=== PATIENT | female | born 1980 ===

== ENCOUNTER 2017-10-22 14:56 | Emergency (ER) | payer MEDICAID ==
[2017-10-22 15:03] VITALS: BMI 33.7
[2017-10-22] MEDS ORDERED: Alum-Mag Hydrox-Simethicone Susp (30 mL) PO ONE (15:48)
[2017-10-22] MEDS ORDERED: Atrop/Hyos/Scop/PhenoB Elixir PO ONE (15:48)
[2017-10-22] MEDS ORDERED: Alum-Mag Hydrox-Simethicone Susp (30 mL) ONE (15:54)
[2017-10-22] MEDS ORDERED: Sodium Chloride 0.9% 1,000 ML IV SCH ×2 (16:00→16:30)
--- NOTE | 2017-10-22 16:06 | ED PDOC ---
Syncope/Near Syncope/Dizziness Time Seen by Provider: 10/22/17 15:40 Chief Complaint (Nursing): Headache Chief Complaint (Provider): Dizziness History Per: Patient History/Exam Limitations: no limitations Onset/Duration Of Symptoms: Days (x1) Current Symptoms Are (Timing): Still Present Additional Complaint(s): Samia Sue is a 37 year old female with a past medical history of migraines and asthma, who is presenting to the ED for evaluation of dizziness and lightheadedness associated with epigastric cramps and discomfort, onset 1 day ago. Patient reports one episode of vomiting and persistent nausea since yesterday. She states that she went out celebrating with her friends and partook in consuming more alcohol than usual. Patient admits she felt tipsy and arrived this morning feeling very thirsty but was unable to quench her thirst. She reports feeling shaky with mild chills along with a decreased appetite. Of note, her last bowel movement was yesterday morning and it was normal with no blood. --+epigastric pain/cramps today (mild) --pt positive for mild chills/vomiting/nausea/dizziness --pt denied syncopal event, no LOC --pt denied fever/sweats/urinary changes (hematuria, dysuria) --pt denied sob/chest pain/palpitations --pt denied fall/trauma/sick contact, no travel --pt is here for further eval --pt denied other complaints PCP: Sean Griffith Surgeries: gastric sleeve procedure (May 2017), tonsillectomy, right hand cyst removal, bilateral foot surgery Past Medical History Reviewed: Historical Data, Nursing Documentation, Vital Signs Vital Signs: Last Vital Signs Temp 98.2 F 10/22/17 15:01 Pulse 78 10/22/17 15:01 Resp 16 10/22/17 15:01 BP 105/70 10/22/17 15:01 Pulse Ox 98 10/22/17 15:01 - Medical History PMH: Asthma, Kidney Stones, Migraine, Mitral Valve Prolapse, Sleep Apnea Denies: Chronic Kidney Disease - Surgical History Surgical History: Tonsillectomy Other surgeries: right hand cyst removal, bilateral foot surgery, gastric sleeve procedure - Family History Family History: States: Unknown Family Hx - Living Arrangements Living Arrangements: With Friends/Others - Social History Current smoker - smoking cessation education provided: No Alcohol: Social Drugs: Denies - Immunization History Hx Tetanus Toxoid Vaccination: No Hx Influenza Vaccination: No Hx Pneumococcal Vaccination: No - Home Medications Home Medications: Ambulatory Orders Medication Instructions Recorded Ibuprofen [Motrin Tab] 600 mg PO Q8H PRN 11/12/15 Clindamycin [Cleocin] 300 mg PO TID #20 cap 01/31/16 Emtricitabine/Tenofovir (Tdf) 1 each PO DAILY 14 Days #14 tablet 08/30/17 [Truvada 200 mg-300 mg Tablet] Raltegravir Potassium [Isentress] 400 mg PO BID 14 Days #28 tab 08/30/17 Sulfamethoxazole/Trimethoprim 1 tab PO BID 5 Days #10 tab 08/30/17 [Bactrim DS 800 mg-160 mg] Aluminum Hydroxide/Magnesium H 30 ml PO TID PRN #300 ml 10/22/17 [Maalox 30 ml] Famotidine [Pepcid] 20 mg PO BID #30 tab 10/22/17 Lidocaine 2% Viscous 15 ml MM TID PRN #100 ml 10/22/17 - Allergies Allergies/Adverse Reactions: Allergies Allergy/AdvReac Type Severity Reaction Status Date / Time cephalexin Allergy ITCHING Verified 10/22/17 15:29 Review of Systems ROS Statement: Except As Marked, All Systems Reviewed And Found Negative Constitutional: Positive for: Chills, Weakness. Negative for: Fever, Sweats Eyes: Negative for: Pain ENT: Negative for: Ear Pain Cardiovascular: Negative for: Chest Pain, Palpitations Respiratory: Negative for: Shortness of Breath Gastrointestinal: Positive for: Nausea, Vomiting, Abdominal Pain. Negative for : Diarrhea Genitourinary Female: Negative for: Dysuria, Hematuria Musculoskeletal: Negative for: Neck Pain, Back Pain Skin: Negative for: Rash Neurological: Positive for: Weakness, Dizziness Physical Exam - Reviewed Nursing Documentation Reviewed: Yes Vital Signs Reviewed: Yes (WNL) - Physical Exam Appears: Positive for: Well (alert/awake, GCS = 15, oriented x 3, NAD, + mildly uncomfortable, resting in bed; cooperative), Non-toxic, No Acute Distress, Uncomfortable Head Exam: Positive for: ATRAUMATIC, NORMAL INSPECTION, NORMOCEPHALIC Skin: Positive for: Normal Color (cap refill < 1sec, no ulcerations, no petechiae, no rashes, no lesions), Warm, Dry. Negative for: Rash Eye Exam: Positive for: Normal appearance, EOMI, PERRL. Negative for: Nystagmus ENT: Positive for: Normal ENT Inspection, Pharynx Is (+ dry oral mucosa, intact dentitions, no drooling/stridor, ), Other (dry oral mucosa, intact dentition, uvula and tongue midline, no dysphonia). Negative for: Tonsillar Exudate, Tonsillar Swelling Neck: Positive for: Normal, Painless ROM, Supple, Trachea Midline Cardiovascular/Chest: Positive for: Regular Rate, Rhythm, Other (+S1, +S2). Negative for: Murmur Respiratory: Positive for: Normal Breath Sounds, Other (CTA b/l, no w/r/r, no accessory muscle use noted, no tachypenia). Negative for: Stridor, Wheezing, Respiratory Distress Pulses-Carotid (L): 2+ Pulses-Carotid (R): 2+ Gastrointestinal/Abdominal: Positive for: Bowel Sounds, Soft, Tenderness (mild epigastric tenderness), Other (well nourished female; + mid abd tenderness, no McBurney's point tenderness, no Gonzalez' s sign; Soft/ND; +BS) Back: Positive for: Normal Inspection. Negative for: L CVA Tenderness, R CVA Tenderness, Vertebral Tenderness Extremity: Positive for: Normal ROM, Other (+ ambulatory; neurovasc intact b/l, strength 5/5 grossly intact in all limbs). Negative for: Deformity, Swelling Neurologic/Psych: Positive for: Alert, chair pad maker II-XII, Oriented (x3), Other (no facial asymmetries, no slurr speech, oriented x 3, NIH stroke scale ~ 0). Negative for: Motor/Sensory Deficits - Laboratory Results Result Diagrams: 10/22/17 16:23 10/22/17 17:54 Interpretation Of Abn Labs: WNL - ECG O2 Sat by Pulse Oximetry: 98 (RA) Pulse Ox Interpretation: Normal - Progress ED Course And Treament: 1830 - pt is doing well pt is not in any distress pt tolerated po well vital signs: WNL pt is made aware of her medical results pt is encouraged fluids/bland diet pt is encouraged NO alcohol pt will f/u as directed pt will be discharged home Re-evaluation Time: 18:30 Condition: Re-examined, Improved Medical Decision Making Medical Decision Making: Time: 15:50 Assessment/Differential Diagnosis: I have considered all the differential diagnosis regarding pt's chief medical complaints/clinical findings, including but are not limited to: likely hangover, dehydration, unlikely rhabdomyolysis, unlikely surgical process, or ACS Plan: - labs - IV - supportive care - observe Orders: --CMP --Lipase --ED Urine --CBC -- 5 ml PO --Lidocaine 15 ml PO --Maalox 30 ml PO --IV Fluids --Pepcid 20 mg IVP --Zofran 4 mg IVP --Urinalysis Scribe Attestation: Documented by Keshia Alejandre, acting as a scribe for Bimal Aragon MD. Provider Scribe Attestation: All medical record entries made by the Scribe were at my direction and personally dictated by me. I have reviewed the chart and agree that the record accurately reflects my personal performance of the history, physical exam, medical decision making, and the department course for this patient. I have also personally directed, reviewed, and agree with the discharge instructions and disposition. Disposition - Clinical Impression Clinical Impression: Dehydration, Epigastric pain - Patient ED Disposition Is Patient to be Admitted: No Counseled Patient/Family Regarding: Studies Performed, Diagnosis, Need For Followup, Rx Given - Disposition Referrals: PCP,NO [Non-Staff] - [facility] [Outside] [facility] [Outside] [facility] [Outside] Disposition: Routine/Home Disposition Time: 18:33 Condition: STABLE Additional Instructions: Make sure to see your doctor in 1-2 days DRINK PLENTY OF FLUIDS DONT DRINK ALCOHOL BLAND DIET IS ENCOURAGED take your medications as prescribed RETURN TO ED IF worse pain, cant breath, persistent vomiting, high fever >101- 102 for hours, altered behavior, slurr speech, facial changes, focal weakness ( arm/leg or both), unable to urinate, heavy/persistent bleeding, passing out, chest pain, or other medical emergencies Prescriptions: Aluminum Hydroxide/Magnesium H [Maalox 30 ml] 30 ml PO TID PRN #300 ml PRN Reason: Gi Distress Famotidine [Pepcid] 20 mg PO BID #30 tab Lidocaine 2% Viscous 15 ml MM TID PRN #100 ml PRN Reason: Gi Distress Instructions: Gastritis, Dehydration, Adult (DC), [place] Diet Forms: [facility] (Faroese) Print Language: CENTRAL AFRICAN
[2017-10-22 16:38] LABS: BASO # 0.1 K/uL (0.0-0.2); BASO % 0.6 % (0.0-2.0); EOS % 0.2 % (0.0-4.0); HEMOGLOBIN 11.1 g/dL (12.0-16.0); LYMPH % 17.6 % (20.0-40.0); MEAN CELL VOLUME 88.2 fl (81.0-99.0); MEAN CORPUSCULAR HEMOGLOBIN 28.8 pg (27.0-31.0); MEAN CORPUSCULAR HGB CONC 32.6 g/dL (33.0-37.0); MEAN PLATELET VOLUME 10.4 fl (7.2-11.7); MONO # 0.7 K/uL (0.0-0.8); MONO % 5.9 % (0.0-10.0); NEUT # 8.8 K/uL (1.8-7.0); NEUT % 75.7 % (50.0-75.0); NRBC % 0.1 % (0.0-0.0); RBC 3.87 Mil/uL (3.80-5.20); RED CELL DISTRIBUTION WIDTH 14.1 % (11.5-14.5); WHITE BLOOD COUNT 11.6 K/uL (4.8-10.8)
[2017-10-22 16:40] LABS: URINE BILIRUBIN NEGATIVE (NEGATIVE); URINE BLOOD NEGATIVE (NEGATIVE); URINE CLARITY CLOUDY (Clear); URINE COLOR AMBER (YELLOW); URINE GLUCOSE (UA) NEG (Normal); URINE LEUKOCYTE ESTERASE SMALL Leu/uL (Negative); URINE PROTEIN 30 mg/dL (NEGATIVE); URINE UROBILINOGEN 0.2-1.0 mg/dL (0.2-1.0)
[2017-10-22 18:13] LABS: ALB/GLOB RATIO 1.2 (1.0-2.1); ALBUMIN 4.1 g/dL (3.5-5.0); ALT/SGPT 25 U/L (9-52); AST/SGOT 37 U/L (14-36); BLOOD UREA NITROGEN 12 mg/dl (7-17); CALCIUM 9.3 mg/dL (8.4-10.2); GFR NON-AFRICAN AMERICAN > 60; LIPASE 50 U/L (23-300)
[2017-10-22 19:05] VITALS: BP 110/67; PULSE 71; RESP 17; TEMP 98.6
[2017-10-22 19:07] VITALS: O2SAT 98
== END 2017-10-22 19:12 | disposition home or self-care (01) ==
LOC: H.ER 14:56
DX: E86.0 Dehydration (principal); R10.13 Epigastric pain
CPT/HCPCS: 80053; 81003; 81025; 82550; 83690; 85025; 96361; 96374; 96375; 99284; J2405; J7030

== ENCOUNTER 2018-03-29 13:28 | Emergency (ER) | payer MEDICAID, OTHER ==
[2018-03-29 13:29] VITALS: BMI 33.7
[2018-03-29] MEDS ORDERED: Sodium Chloride 0.9% 1,000 ML IV SCH (18:15)
[2018-03-29 18:44] LABS: BASO % 1.3 % (0.0-2.0); EOS % 2.5 % (0.0-4.0); HEMOGLOBIN 10.9 g/dL (12.0-16.0); LYMPH # 1.4 K/uL (1.0-4.3); LYMPH % 32.5 % (20.0-40.0); MEAN CELL VOLUME 89.7 fl (81.0-99.0); MEAN CORPUSCULAR HEMOGLOBIN 28.8 pg (27.0-31.0); MEAN CORPUSCULAR HGB CONC 32.1 g/dL (33.0-37.0); MEAN PLATELET VOLUME 9.8 fl (7.2-11.7); MONO # 0.8 K/uL (0.0-0.8); MONO % 18.1 % (0.0-10.0); NEUT % 45.6 % (50.0-75.0); NRBC % 0.1 % (0.0-0.0); RBC 3.8 Mil/uL (3.80-5.20); RED CELL DISTRIBUTION WIDTH 13.9 % (11.5-14.5); WHITE BLOOD COUNT 4.4 K/uL (4.8-10.8)
[2018-03-29 18:45] LABS: BASO # 0.1 K/uL (0.0-0.2); EOS # 0.1 K/uL (0.0-0.7)
[2018-03-29 18:55] LABS: ALB/GLOB RATIO 1.2 (1.0-2.1); ALBUMIN 4.1 g/dL (3.5-5.0); ALT/SGPT 24 U/L (9-52); AST/SGOT 25 U/L (14-36); BLOOD UREA NITROGEN 17 mg/dl (7-17); CALCIUM 9.2 mg/dL (8.4-10.2); GFR NON-AFRICAN AMERICAN > 60
--- NOTE | 2018-03-29 19:15 | ED PDOC ---
Syncope/Near Syncope/Dizziness Time Seen by Provider: 03/29/18 15:55 Chief Complaint (Nursing): Dizziness/Lightheaded Chief Complaint (Provider): Dizziness/Lightheaded History Per: Patient History/Exam Limitations: no limitations Onset/Duration Of Symptoms: Days (x1), Persistent Current Symptoms Are (Timing): Still Present Additional Complaint(s): Patient is a 37 y/o female with a PMHx of asthma, kidney stones, migraine, mitral valve prolapse, and sleep apnea who presents to the ED for evaluation burning, right-sided neck pain and headache. The patient states she has been having difficulty moving her neck, has been experiencing visual blurriness, a sore throat, right-sided ear pain associated with her neck pain, and a mild sore throat. Patient's partner states she developed a cold sweat last night. The patient has also been able to eat and drink normally. However, the patient denies fever as well as N/V/D. Of note, the patient saw her PMD two weeks ago with viral illness symptoms such as a cough, myalgia, and nausea which she was prescribed Ibuprofen and Zofran. PCP: Dr. Sean Griffith Past Medical History Reviewed: Historical Data, Nursing Documentation, Vital Signs Vital Signs: Last Vital Signs Temp 98.4 F 03/29/18 14:07 Pulse 68 03/29/18 14:07 Resp 16 03/29/18 14:07 BP 121/74 03/29/18 14:07 Pulse Ox 100 03/29/18 14:07 - Medical History PMH: Asthma, Kidney Stones, Migraine, Mitral Valve Prolapse, Sleep Apnea Denies: Chronic Kidney Disease - Surgical History Surgical History: Tonsillectomy - Family History Family History: States: Unknown Family Hx - Immunization History Hx Tetanus Toxoid Vaccination: No Hx Influenza Vaccination: No Hx Pneumococcal Vaccination: No - Home Medications Home Medications: Ambulatory Orders Medication Instructions Recorded Ibuprofen [Motrin Tab] 600 mg PO Q8H PRN 11/12/15 Clindamycin [Cleocin] 300 mg PO TID #20 cap 01/31/16 Emtricitabine/Tenofovir (Tdf) 1 each PO DAILY 14 Days #14 tablet 08/30/17 [Truvada 200 mg-300 mg Tablet] Raltegravir Potassium [Isentress] 400 mg PO BID 14 Days #28 tab 08/30/17 Sulfamethoxazole/Trimethoprim 1 tab PO BID 5 Days #10 tab 08/30/17 [Bactrim DS 800 mg-160 mg] Aluminum Hydroxide/Magnesium H 30 ml PO TID PRN #300 ml 10/22/17 [Maalox 30 ml] Famotidine [Pepcid] 20 mg PO BID #30 tab 10/22/17 Lidocaine 2% Viscous 15 ml MM TID PRN #100 ml 10/22/17 Acetaminophen/Butalbital/Caf 1 tab PO Q4 PRN 7 Days tab 03/29/18 [Fioricet] Ibuprofen [Motrin Tab] 600 mg PO Q6 PRN 7 Days tab 03/29/18 - Allergies Allergies/Adverse Reactions: Allergies Allergy/AdvReac Type Severity Reaction Status Date / Time cephalexin Allergy ITCHING Verified 03/29/18 14:07 Review of Systems ROS Statement: Except As Marked, All Systems Reviewed And Found Negative Constitutional: Positive for: Sweats, Other (Myalgia). Negative for: Fever ENT: Positive for: Ear Pain (Right sided), Throat Pain (Sore), Other (Viual Blurryness) Cardiovascular: Negative for: Chest Pain, Palpitations Respiratory: Positive for: Cough. Negative for: Shortness of Breath Gastrointestinal: Negative for: Nausea, Vomiting, Diarrhea Musculoskeletal: Positive for: Neck Pain (to palpation of right side and posterior) Neurological: Negative for: Numbness (or Tingling of Hands) Physical Exam - Reviewed Nursing Documentation Reviewed: Yes Vital Signs Reviewed: Yes - Physical Exam Appears: Positive for: Uncomfortable Head Exam: Positive for: ATRAUMATIC, NORMAL INSPECTION, NORMOCEPHALIC Skin: Positive for: Normal Color Eye Exam: Positive for: Normal appearance, EOMI ENT: Positive for: Normal ENT Inspection, Other (No Tongue Deviation) Neck: Positive for: Decreased ROM (of lateral extenison and flexion) Cardiovascular/Chest: Negative for: Murmur (Split S2) Respiratory: Positive for: Normal Breath Sounds Gastrointestinal/Abdominal: Positive for: Normal Exam Extremity: Positive for: Normal ROM, Other (Equal Bilateral Supervisor Display Fabrication Strength) Neurologic/Psych: Positive for: Alert, Oriented, Other (Affect is Appropriate). Negative for: Facial Droop (Symmetrical Smile) - Laboratory Results Result Diagrams: 03/29/18 18:35 03/29/18 18:35 - ECG O2 Sat by Pulse Oximetry: 100 (RA) Pulse Ox Interpretation: Normal Medical Decision Making Medical Decision Making: Time: 1647 Plan: Angio [CTA Head & Neck Bundle] CMP Urine Pegnancy CBC Flexeril 10 mg IV Fluids Reglan 10 mg IVP Toradol 30 mg IM Influenza A B Time: 1929 An hour after medication was given, patient felt no improvement. Patient continues to feel burning sensation from neck to head. Angio ordered to rule out thrombosis. Time: 2038 CTA Head Neck Bundle FINDINGS: VASCULATURE: NECK: COMMON CAROTID ARTERIES No significant canal stenosis. No dissection or occlusion. EXTERNAL CAROTID ARTERIES Patent. NECK: INTERNAL CAROTID ARTERIES No stenosis by NASCET criteria. No dissection or occlusion. VERTEBRAL ARTERIES No significant canal stenosis. No dissection or occlusion. HEAD: ANTERIOR CEREBRAL ARTERIES No significant stenosis. No occlusion. No aneurysm. MIDDLE CEREBRAL ARTERIES No significant stenosis. No occlusion. No aneurysm. POSTERIOR CEREBRAL ARTERIES No significant stenosis. No occlusion. No aneurysm. BASILAR ARTERY No significant stenosis. No occlusion. No aneurysm. OTHER: SOFT TISSUES No acute finding. BONES No acute osseous abnormality. IMPRESSION: Unremarkable CTA of the head and neck. Electronically signed on Mar 29, 2018 8:39:34 PM EST by: Froilan Garcia M.D., PAMELA Certified By [facility] [employer] [facility] Fellowship Trained MRI and CT Specialist Scribe Attestation: Documented by Nicola Barron, acting as a scribe for Patt HOGAN. Provider Scribe Attestation: All medical record entries made by the Scribe were at my direction and personally dictated by me. I have reviewed the chart and agree that the record accurately reflects my personal performance of the history, physical exam, medical decision making, and the department course for this patient. I have also personally directed, reviewed, and agree with the discharge instructions and disposition. Disposition - Clinical Impression Clinical Impression: Cluster headache - Patient ED Disposition Is Patient to be Admitted: No Counseled Patient/Family Regarding: Studies Performed, Diagnosis, Need For Followup, Rx Given - Disposition Referrals: Sean Griffith, FLORY, [facility] [Family Provider] - Disposition: Routine/Home Disposition Time: 23:40 Condition: STABLE Additional Instructions: F/u with your neurologist for further management of headache. Take Ibuprofen and Fioricet for the pain. Return to ER if your pain becomes significantly worse or if you start to have trouble with your vision, N/V or unsteady when walking. Stay hydrated. Prescriptions: Acetaminophen/Butalbital/Caf [Fioricet] 1 tab PO Q4 PRN 7 Days tab PRN Reason: Headache Ibuprofen [Motrin Tab] 600 mg PO Q6 PRN 7 Days tab PRN Reason: Headache Instructions: Cluster Headache (DC) Forms: [facility] (Lao), [facility] ED School/Work Excuse Print Language: FILIPINO
[2018-03-29] MEDS ORDERED: Sodium Chloride 0.9% 50 ML IV ONE (19:21)
[2018-03-29] MEDS ORDERED: Iodixanol 320 MG/ML 100 ML BOTTLE IV ONE (19:21)
[2018-03-29] MEDS ORDERED: Sodium Chloride 0.9% 500 ML IV STA (20:57)
[2018-03-29 23:43] VITALS: BP 118/72; PULSE 72; RESP 18; TEMP 98.2; O2SAT 98
--- NOTE | 2018-03-30 12:55 | CT ---
Date of service: 03/29/2018 PROCEDURE: CT Angiography of the Brain and Neck. HISTORY: burning neck pain and ISAAC w/ intermittent visual ch COMPARISON: None available. TECHNIQUE: CT angiography of the head and neck was performed following intravenous contrast administration. Coronal and sagittal maximum intensity projection reformatted images were generated. Contrast Dose: Visipaque 320, 95 cc Radiation dose: Total exam DLP = 410.02 mGy-cm. This CT exam was performed using one or more of the following dose reduction techniques: Automated exposure control, adjustment of the mA and/or kV according to patient size, and/or use of iterative reconstruction technique. FINDINGS: INTERNAL CEREBRAL ARTERIES: Unremarkable. The skull base, petrous, cavernous and supraclinoid segments are bilaterally widely patent. ANTERIOR CEREBRAL ARTERIES: Unremarkable. A1 and A2 segments are widely patent. Smaller distal branches unremarkable, as visualized. MIDDLE CEREBRAL ARTERIES: Unremarkable. M1 and M2 segments are widely patent. Perisylvian branches grossly symmetric. POSTERIOR CIRCULATION: Basilar Artery: Unremarkable. Distal Vertebral Arteries: Unremarkable. Posterior Cerebral Arteries: Unremarkable. Posterior Inferior Cerebellar Arteries: Unremarkable. NECK CTA: Common Carotid arteries: The bilateral common carotid appear widely patent from their origins to their bifurcations with no significant stenosis appreciated. No evidence to suggest common carotid artery dissection. Internal Carotid arteries: No significant stenosis is appreciated throughout the cervical internal carotid artery segments bilaterally and there is no evidence of dissection either. External Carotid arteries: Appear unremarkable bilaterally. Vertebral arteries: The bilateral vertebral arteries appear normal in caliber from their origins to their distal cervical segments. No significant stenosis or definite pattern of dissection. ANEURYSM/ VASCULAR MALFORMATIONS: None. OTHER FINDINGS: None. IMPRESSION: Unremarkable CT Angiography of the Brain and Neck.
== END 2018-03-29 23:43 | disposition home or self-care (01) ==
LOC: H.ER 13:28
DX: G44.009 Cluster headache syndrome, unspecified, not intractable (principal)
CPT/HCPCS: 70496; 70498; 80053; 81025; 85025; 87804; 96361; 96372; 96374; 99283; J1885; J2765; J7030; J7040; Q9967

== ENCOUNTER 2018-08-24 16:25 | Emergency (ER) | payer MEDICAID, OTHER ==
[2018-08-24 16:25] VITALS: BMI 33.7
[2018-08-24 16:44] VITALS: BP 115/79; PULSE 77; RESP 18; TEMP 98.7; O2SAT 99
--- NOTE | 2018-08-24 17:10 | ED PDOC ---
HPI: Back Time Seen by Provider: 08/24/18 17:01 Chief Complaint (Nursing): Back Pain Chief Complaint (Provider): Back Pain History Per: Patient History/Exam Limitations: no limitations Onset/Duration Of Symptoms: Days Current Symptoms Are (Timing): Still Present Additional Complaint(s): 38 y/o female presents to the ED for evaluation of right flank pain and back pain that has worsened since yesterday despite use of Motrin. Patient reports of a history of UTI and is concerned for infection. Otherwise, patient denies fever and chills. PMD: Sean Griffith Past Medical History Reviewed: Historical Data, Nursing Documentation, Vital Signs Vital Signs: Last Vital Signs Temp 98.7 F 08/24/18 16:40 Pulse 77 08/24/18 16:40 Resp 18 08/24/18 16:40 BP 115/79 08/24/18 16:40 Pulse Ox 99 08/24/18 16:40 Primary Care Provider: Sean Griffith - Medical History PMH: Asthma, Kidney Stones, Migraine, Mitral Valve Prolapse, Sleep Apnea Denies: Chronic Kidney Disease - Surgical History Surgical History: Tonsillectomy - Family History Family History: States: Unknown Family Hx - Immunization History Hx Tetanus Toxoid Vaccination: No Hx Influenza Vaccination: No Hx Pneumococcal Vaccination: No - Home Medications Home Medications: Ambulatory Orders Medication Instructions Recorded Ibuprofen [Motrin Tab] 600 mg PO Q8H PRN 11/12/15 Clindamycin [Cleocin] 300 mg PO TID #20 cap 01/31/16 Emtricitabine/Tenofovir (Tdf) 1 each PO DAILY 14 Days #14 tablet 08/30/17 [Truvada 200 mg-300 mg Tablet] Raltegravir Potassium [Isentress] 400 mg PO BID 14 Days #28 tab 08/30/17 Sulfamethoxazole/Trimethoprim 1 tab PO BID 5 Days #10 tab 08/30/17 [Bactrim DS 800 mg-160 mg] Aluminum Hydroxide/Magnesium H 30 ml PO TID PRN #300 ml 10/22/17 [Maalox 30 ml] Famotidine [Pepcid] 20 mg PO BID #30 tab 10/22/17 Lidocaine 2% Viscous 15 ml MM TID PRN #100 ml 10/22/17 Acetaminophen/Butalbital/Caf 1 tab PO Q4 PRN 7 Days tab 03/29/18 [Fioricet] Ibuprofen [Motrin Tab] 600 mg PO Q6 PRN 7 Days tab 03/29/18 Naproxen 375 mg PO Q8 PRN #21 tablet 08/24/18 diaZEpam [Valium] 5 mg PO Q8 PRN #4 tab 08/24/18 - Allergies Allergies/Adverse Reactions: Allergies Allergy/AdvReac Type Severity Reaction Status Date / Time cephalexin Allergy ITCHING Verified 08/24/18 16:44 Review of Systems ROS Statement: Except As Marked, All Systems Reviewed And Found Negative Musculoskeletal: Positive for: Back Pain Physical Exam - Reviewed Nursing Documentation Reviewed: Yes Vital Signs Reviewed: Yes - Physical Exam Appears: Positive for: Uncomfortable Back: Positive for: Other (Right parathoracic and right flank tenderness to palpation.) - Laboratory Results Urine POC: Negative Urine dip results: Negative for: Blood, Nitrate, Ketones, Glucose, Bilirubin, Protein - ECG O2 Sat by Pulse Oximetry: 99 (RA) Pulse Ox Interpretation: Normal - Progress ED Course And Treament: TORADOL 30 MG IM X 1 DOSE VALIUM 5 MG X 1 DOSE Medical Decision Making Medical Decision Making: Time: 170 Impression: Flank Pain Plan: -- ED Urine -- ED Urine Dipstick -- Urine Culture -- Urinalysis Scribe Attestation: Documented by Irina Montalvo, acting as a scribe Odilia Galarza PA-C. Provider Scribe Attestation: All medical record entries made by the Scribe were at my direction and personally dictated by me. I have reviewed the chart and agree that the record accurately reflects my personal performance of the history, physical exam, medical decision making, and the department course for this patient. I have also personally directed, reviewed, and agree with the discharge instructions and disposition. Disposition - Clinical Impression Clinical Impression: Back strain - Patient ED Disposition Is Patient to be Admitted: No - Disposition Disposition: Routine/Home Disposition Time: 17:51 Condition: FAIR Prescriptions: diaZEpam [Valium] 5 mg PO Q8 PRN #4 tab PRN Reason: Muscle Spasm Naproxen 375 mg PO Q8 PRN #21 tablet PRN Reason: Pain, Moderate (4-7) Instructions: Low Back Pain (DC), Muscle Strain (DC) Forms: [facility] ED School/Work Excuse
[2018-08-24] MEDS ORDERED: Oxycodone/Acetaminophen 5/325 mg Tab ONE (17:36)
[2018-08-24 18:05] LABS: SQUAMOUS EPITHIAL 1 /hpf (0-5); URINE BILIRUBIN NEGATIVE (NEGATIVE); URINE CLARITY SLIGHTY-CLOUDY (Clear); URINE COLOR YELLOW (YELLOW); URINE GLUCOSE (UA) NEG (NEGATIVE); URINE LEUKOCYTE ESTERASE NEG Leu/uL (Negative); URINE PROTEIN NEGATIVE (NEGATIVE)
[2018-08-24 18:06] LABS: URINE BLOOD TRACE (NEGATIVE)
== END 2018-08-24 17:53 | disposition home or self-care (01) ==
LOC: H.ER 16:25
DX: S39.012A Strain of muscle, fascia and tendon of lower back, initial encounter (principal); J45.909 Unspecified asthma, uncomplicated; I34.1 Nonrheumatic mitral (valve) prolapse; Z87.440 Personal history of urinary (tract) infections; Z87.442 Personal history of urinary calculi; X58.XXXA Exposure to other specified factors, initial encounter
CPT/HCPCS: 81003; 81025; 87086; 96372; 99283; J1885